=== PATIENT | male | born 1995 | race Caucasian/White ===

== ENCOUNTER 2017-07-14 02:09 | Emergency (ER) | payer OTHER ==
[2017-07-14 02:20] VITALS: TEMP 97.9; O2SAT 93
[2017-07-14] MEDS ORDERED: IBUPROFEN 600 MG TAB PO ONE ×2 (02:21)
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
[2017-07-14 02:59] VITALS: BP 123/74; PULSE 74; RESP 16
== END 2017-07-14 03:00 | disposition home or self-care (01) ==
PROC: 0RSJXZZ Reposition Right Shoulder Joint, External Approach (ICD-10-PCS; principal; 2017-07-14)
DX: S43.004A Unspecified dislocation of right shoulder joint, initial encounter (principal); F17.200 Nicotine dependence, unspecified, uncomplicated; X58.XXXA Exposure to other specified factors, initial encounter
CPT/HCPCS: A4565

== ENCOUNTER 2017-09-07 08:54 | Emergency (ER) | payer OTHER ==
[2017-09-07 08:57] VITALS: BP 122/78; PULSE 82; RESP 18; TEMP 97.9; O2SAT 98
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
== END 2017-09-07 09:16 ==
LOC: EEVIPCON 08:54
DX: F11.90 Opioid use, unspecified, uncomplicated; F17.200 Nicotine dependence, unspecified, uncomplicated